=== PATIENT | male | born 1985 | race Caucasian/White ===

== ENCOUNTER 2016-11-11 19:13 | Inpatient (IN) | payer OTHER ==
[~2016-11-11] VITALS: Ht 203.2 cm; Wt 83.9 kg
--- NOTE | ~2016-11-11 | D ---
[facility] [place] [address] DISCHARGE SUMMARY Name: VERONICA MARCOS Room #: 454-P [facility] IN M.R.#: [id number] Admission: 11/12/16 Attend Phys: Adrianna Bee MD Discharge: 11/13/16 Date of : 85 Report #: [id number] THIS REPORT FOR: //name// CC: DEA physician/PCP Adrianna Garcia DATE OF SERVICE: 11/13/2016 HISTORY OF PRESENT ILLNESS: The patient is a 31-year-old man with history of seizure disorder since the age of 16, who came to the hospital with seizure episode. Please refer to the admission H and P for details. HOSPITALIZATION COURSE: The patient was hospitalized at [facility]. The patient was seen by neurologist. MRI of the brain was unremarkable. The patient had EEG, that showed no seizure activity. His seizure medications were continued, except the doses were increased. The patient's hospital stay was uneventful. He was found to have dehydration, and mild acute kidney injury, that has resolved on IV fluids. Currently, the patient's condition is acceptable, as documented in the patient's chart. DISCHARGE DIAGNOSES: 1. Episode of seizure, history of longstanding seizure disorder. Details as above. 2. History of panhypopituitarism, details are not specified. Possible idiopathic etiology. 3. 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 4. Bipolar disease. 5. Borderline personality disorder. 6. Gastroesophageal reflux disease. 7. Chronic pain syndrome. 8. History of pulmonary embolism in 2015, currently off anticoagulation. 9. Gait abnormality, not otherwise specified. DISCHARGE MEDICATIONS: Please refer to the medication reconciliation list. FOLLOWUP PLAN: 1. Follow up with the neurologist as advised. 2. Follow up with the primary care physician in 1-2 weeks. [facility] [address] [place] [address] DISCHARGE SUMMARY Name: VERONICA MARCOS Room #: 454-P [facility] IN .R.#: [id number] Admission: 11/12/16 Attend Phys: Adrianna Bee MD Discharge: 11/13/16 Date of : 85 Report #: [id number] I spent more than 30 minutes to coordinate the patient's discharge from the hospital. <ELECTRONICALLY SIGNED> By: Adrianna Bee MD 11/18/16 1247 1439 1920 Adrianna Bee MD /nt
--- NOTE | ~2016-11-11 | EEG ---
[facility] [place] [address] ELECTROENCEPHALOGRAM Name: VERONICA MARCOS Room #: 454-P [facility] IN M.R.#: [id number] Admission: 11/12/16 Attend Phys: Dorcas Saucedo Discharge: 11/13/16 Date of : 85 Report #: [id number] THIS REPORT FOR: //name// CC: DEA physician/PCP Juan Alberto Garcia DATE OF SERVICE: 11/12/2016 This patient is being evaluated for the possibility of seizure. The EEG was done by placing the electrodes by standard 10-20 system of electrode placement. Both referential and sequential montages were used for recording. Background activity in this patient's EEG is about 10 Hz and 30 microvolt. This is a symmetrical activity. The patient became drowsy and that is associated with some slowing, but most of the EEG was obtained when the patient was awake. Photic stimulation was unremarkable. Throughout the record, no active epileptiform activity was noticed. IMPRESSION: This patient's EEG is within normal limits. Thank you very much for this referral. <ELECTRONICALLY SIGNED> By: Edward Garcia MD 11/17/162002 1734 183 Edward Garcia MD /nt
[~2016-11-11 19:13] MED LIST: ACETAMINOPHEN-1 EAC1 PO; ADVAIR 250-501 EACH; ANDRODERM1 EAC2 TD; ANDRODERM1 EAC2 TRANSDERM; BENZTROPINE MES1 MG PO; BENZTROPINE MESY2 MG PO; CARDIZEM CD120 MG PO; CLONAZEPAM; CLONAZEPAM 0.50.5 M1 PO; CORTEF 20 MG TA20 MG PO; CORTEF10 MG PO; COUMADIN 2 MG TA2 M1 PO; COUMADIN 4 MG TA4 M1 PO; DOXYCYCLINE 10100 MG PO; DURAGESIC1 EAC2; ENOXAPARIN80 MG/0.1 SUBQ; FENTANYL PA50 MCG/HR; FENTANYL PA50 MCG/HR TOP; FENTANYL PA50 MCG/HR TRANSDERM; FLAGYL500 M1 PO; FLONASE 0.05%50 MCG NASAL; FLUVOXAMINE MA100 M1 PO; FOLIC ACID 1 MG1 MG PO; GRALISE600 MG PO; HYDROXYZINE HCL25 M1 PO; HYDROXYZINE PAM50 MG PO; KETOCONAZOLE60 GM TP; LAMICTAL; LAMOTRIGINE200 M1 PO; LAMOTRIGINE200 MG PO; LEVOTHYROXIN0.075 MG PO; LEVOTHYROXIN0.088 MG PO; LEVOTHYROXIN0.112 M1 PO; LEVOTHYROXINE 0.1 MG PO; LIDODERM 5%1 PATCH TOP; LORATIDINE 10 M10 M1 PO; LUVOX 50MG TABL50 M1 PO; LUVOX CR100 MG PO; MILK OF MA2400 MG/10 PO; MIRALAX255 GM PO; MOM PO; NEURONTIN600 MG PO; NIZORAL120 ML TOP; NYSTATIN 100,0015 G1 TOP; NYSTATIN 1100000 U/M; OMEPRAZOLE 20 M20 MG PO; OMEPRAZOLE20 MG PO; ONDANSETRON HCL4 M2 PO; OXYCODONE HCL 55 MG PO; PHENERGAN 25 MG25 M1 PO; POTASSIUM20 PO; PRENATAL PO; PROAIR HFA8.5 GM INH; QUETIAPINE FUM400 MG PO; SENNA-LAX8.6 MG PO; SINGULAIR 10 MG10 MG PO; TEARS NATURALE1 EACH OPHTHALMIC; TRAZODONE 150150 M1 PO; TRINATE TABLET1 TAB PO; TYLENOL325 MG PO; Trazodone HCL PO; VANCOMYCIN100 MG/ML PO; VENTOLIN HFA 1818 GM INH; VIMPAT100 MG; VIMPAT100 MG PO; VIMPAT150 MG PO; VISTARIL 25 MG25 M1 PO; VITAMIN D-32000 UNI1 PO; VITAMIN D-32000 UNIT PO; VITAMIN D1000 UNI1 PO
[2016-11-11 19:14] VITALS: BP 109/44
[2016-11-11 19:42] LABS: ABSOLUTE NEUTROPHILS 6.1 thou/uL (1.4-8.2); BASOPHILS 0.1 % (0.0-2.0); EOSINOPHILS 0.4 % (0.0-3.0); HEMATOCRIT 38.8 % (42.0-52.0); HEMOGLOBIN 13.4 gm/dL (14.0-18.0); LYMPHOCYTES 17.9 % (24.0-44.0); MCH 29.7 pg (26.0-34.0); MCHC 34.6 g/dL (28.0-37.0); MONOCYTES 6.6 % (1.0-8.0); PLATELET COUNT 272 thou/uL (150-400); RBC 4.52 mil/uL (4.50-6.00); WBC 8.1 thou/uL (4.0-11.0)
[2016-11-11 19:43] LABS: MANUAL DIFF NO
[2016-11-11 19:58] LABS: ANION GAP 10 mmol/L (7-16); BUN 17 mg/dL (7-18); CALCIUM 9.5 mg/dL (8.5-10.1); CHLORIDE 108 mmol/L (98-107); CO2 25 mmol/L (21-32); CREATININE 1.6 mg/dL (0.7-1.3); GLUCOSE 94 mg/dL (74-106); POTASSIUM 3.8 mmol/L (3.5-5.1); SODIUM 143 mmol/L (136-145)
[2016-11-11 20:02] LABS: ALBUMIN 4.2 g/dL (3.4-5.0); ALKALINE PHOSPHATASE 94 U/L (46-116); SALICYLATE 2.9 mg/dL (2.8-20.0); SGOT 11 U/L (15-37); SGPT 13 U/L (30-65); TOTAL BILIRUBIN 0.3 mg/dL (<0.1-1.0); TOTAL PROTEIN 7.2 g/dL (6.4-8.2)
[2016-11-11 20:03] LABS: ACETAMINOPHEN < 2 ug/mL (10-30)
[2016-11-11 22:43] VITALS: BP 117/75
[2016-11-11 23:05] VITALS: BP 118/70
[2016-11-11 23:28] LABS: URINE BILIRUBIN NEGATIVE (Negative); URINE BLOOD TRACE (Negative); URINE COLOR YELLOW; URINE GLUCOSE-RANDOM* NEGATIVE (Negative); URINE KETONES NEGATIVE (Negative); URINE LEUKOCYTES-REFLEX NEGATIVE (Negative); URINE PROTEIN (DIPSTICK) NEGATIVE (Negative); URINE UROBILINOGEN 0.2 E.U./dl (0.2-1.0)
[2016-11-11 23:44] LABS: AMP/METHAMP Negative (Negative); BARBITURATES Negative (Negative); BENZODIAZEPINES POSITIVE (Negative); COCAINE Negative (Negative); METHADONE Negative (Negative); OPIATES Negative (Negative); PCP Negative (Negative); THC Negative (Negative)
[2016-11-12 04:00] VITALS: BP 125/77
[2016-11-12 07:15] VITALS: BP 114/73
[2016-11-12 13:53] LABS: CALCIUM 8.7 mg/dL (8.5-10.1); CREATININE 1.2 mg/dL (0.7-1.3); POTASSIUM 4.1 mmol/L (3.5-5.1)
[2016-11-12 15:54] VITALS: BP 108/68
[2016-11-12 19:49] VITALS: BP 112/57
[2016-11-13 03:08] LABS: ABSOLUTE NEUTROPHILS 9.1 thou/uL (1.4-8.2); BASOPHILS 0.1 % (0.0-2.0); EOSINOPHILS 0.1 % (0.0-3.0); HEMATOCRIT 38.2 % (42.0-52.0); LYMPHOCYTES 10.3 % (24.0-44.0); MCH 29.7 pg (26.0-34.0); MCV 87.4 fL (80.0-100.0); PLATELET COUNT 263 thou/uL (150-400); POLYS 85.5 % (36.0-66.0); RBC 4.37 mil/uL (4.50-6.00); RDW 14.9 % (10.5-14.5); WBC 10.6 thou/uL (4.0-11.0)
[2016-11-13 03:38] VITALS: BP 106/65
[2016-11-13 03:46] LABS: MANUAL DIFF NO
[2016-11-13 03:54] LABS: CALCIUM 9.5 mg/dL (8.5-10.1); CREATININE 1.1 mg/dL (0.7-1.3); POTASSIUM 4.2 mmol/L (3.5-5.1)
[2016-11-13 07:17] VITALS: BP 128/79
[2016-11-13 12:22] VITALS: BP 125/73
[2016-11-13] MEDS ORDERED: VIMPAT50 MG PO (14:44)
[2016-11-13] MEDS ORDERED: LAMICTAL100 MG PO (14:44)
== END 2016-11-13 16:33 | disposition home or self-care (01) | DRG 100 ==
LOC: ER 19:13 → EROBS 21:47 → 4W 22:53
PROVIDERS: Emergency Medicine; Internal Medicine Endocrinology, Diabetes & Metabolism
DX: G40.909 Epilepsy, unspecified, not intractable, without status epilepticus (principal); N17.0 Acute kidney failure with tubular necrosis; E23.0 Hypopituitarism; I95.1 Orthostatic hypotension; F31.9 Bipolar disorder, unspecified; I12.9 Hypertensive chronic kidney disease with stage 1 through stage 4 chronic kidney disease, or unspecified chronic kidney disease; K21.9 Gastro-esophageal reflux disease without esophagitis; M19.90 Unspecified osteoarthritis, unspecified site; N18.3 Chronic kidney disease, stage 3 (moderate); M54.9 Dorsalgia, unspecified; J45.909 Unspecified asthma, uncomplicated; F41.9 Anxiety disorder, unspecified; M54.2 Cervicalgia; E03.9 Hypothyroidism, unspecified; F12.90 Cannabis use, unspecified, uncomplicated; F17.210 Nicotine dependence, cigarettes, uncomplicated; F10.10 Alcohol abuse, uncomplicated; G89.4 Chronic pain syndrome; Z86.711 Personal history of pulmonary embolism; Z88.1 Allergy status to other antibiotic agents; Z88.6 Allergy status to analgesic agent; Z79.899 Other long term (current) drug therapy; Z88.8 Allergy status to other drugs, medicaments and biological substances
CPT/HCPCS: 10045

== ENCOUNTER 2016-12-19 19:36 | Emergency (ER) | payer OTHER ==
[~2016-12-19] VITALS: Ht 203.2 cm; Wt 82.1 kg
[~2016-12-19 19:36] MED LIST changes: +LAMICTAL100 MG PO; +VIMPAT50 MG PO
[2016-12-19 20:22] LABS: URINE BILIRUBIN NEGATIVE (Negative); URINE BLOOD TRACE (Negative); URINE COLOR YELLOW; URINE GLUCOSE-RANDOM* NEGATIVE (Negative); URINE KETONES NEGATIVE (Negative); URINE NITRITE NEGATIVE (Negative); URINE PROTEIN (DIPSTICK) NEGATIVE (Negative); URINE SPECIFIC GRAVITY <= 1.005 (1.003-1.035); URINE UROBILINOGEN 0.2 E.U./dl (0.2-1.0)
[2016-12-19 20:37] LABS: ABSOLUTE NEUTROPHILS 4.3 thou/uL (1.4-8.2); BASOPHILS 0.5 % (0.0-2.0); EOSINOPHILS 1.4 % (0.0-3.0); HEMATOCRIT 38.2 % (42.0-52.0); HEMOGLOBIN 12.9 gm/dL (14.0-18.0); LYMPHOCYTES 25.3 % (24.0-44.0); MANUAL DIFF NO; MCH 30.6 pg (26.0-34.0); MCHC 33.8 g/dL (28.0-37.0); MCV 90.6 fL (80.0-100.0); PLATELET COUNT 248 thou/uL (150-400); POLYS 65.8 % (36.0-66.0); RBC 4.22 mil/uL (4.50-6.00); WBC 6.6 thou/uL (4.0-11.0)
[2016-12-19 20:45] LABS: ANION GAP 11 mmol/L (7-16); BUN 13 mg/dL (7-18); CALCIUM 9.3 mg/dL (8.5-10.1); CHLORIDE 106 mmol/L (98-107); CO2 26 mmol/L (21-32); CREATININE 1.3 mg/dL (0.7-1.3); GLUCOSE 99 mg/dL (74-106); POTASSIUM 3.7 mmol/L (3.5-5.1); SODIUM 143 mmol/L (136-145)
[2016-12-19 20:50] LABS: ALBUMIN 4.2 g/dL (3.4-5.0); ALKALINE PHOSPHATASE 91 U/L (46-116); DIRECT BILIRUBIN < 0.1 mg/dL (<0.1-0.3); SGOT 13 U/L (15-37); SGPT 16 U/L (30-65); TOTAL BILIRUBIN 0.3 mg/dL (<0.1-1.0); TOTAL PROTEIN 6.6 g/dL (6.4-8.2)
== END 2016-12-19 22:29 | disposition home or self-care (01) ==
LOC: ER 19:36
PROVIDERS: Nurse Practitioner
DX: R56.9 Unspecified convulsions (principal); F31.9 Bipolar disorder, unspecified; K21.9 Gastro-esophageal reflux disease without esophagitis; M19.90 Unspecified osteoarthritis, unspecified site; G89.29 Other chronic pain; M54.9 Dorsalgia, unspecified; J45.909 Unspecified asthma, uncomplicated; F41.9 Anxiety disorder, unspecified; F84.0 Autistic disorder; I12.9 Hypertensive chronic kidney disease with stage 1 through stage 4 chronic kidney disease, or unspecified chronic kidney disease; N18.9 Chronic kidney disease, unspecified; E29.1 Testicular hypofunction; F17.210 Nicotine dependence, cigarettes, uncomplicated; Z86.711 Personal history of pulmonary embolism; Z86.14 Personal history of Methicillin resistant Staphylococcus aureus infection; Z88.1 Allergy status to other antibiotic agents; Z88.6 Allergy status to analgesic agent; Z88.8 Allergy status to other drugs, medicaments and biological substances; W07.XXXA Fall from chair, initial encounter; Y93.89 Activity, other specified; Y92.89 Other specified places as the place of occurrence of the external cause; Y99.8 Other external cause status

== ENCOUNTER 2017-01-23 18:46 | Emergency (ER) | payer OTHER ==
[~2017-01-23] VITALS: Ht 203.2 cm; Wt 83.9 kg
[2017-01-23 19:09] LABS: ABSOLUTE NEUTROPHILS 7.6 thou/uL (1.4-8.2); BASOPHILS 0.4 % (0.0-2.0); EOSINOPHILS 0.3 % (0.0-3.0); HEMATOCRIT 35.5 % (42.0-52.0); HEMOGLOBIN 12.5 gm/dL (14.0-18.0); LYMPHOCYTES 18.5 % (24.0-44.0); MCH 31.3 pg (26.0-34.0); MCHC 35.1 g/dL (28.0-37.0); MCV 89.1 fL (80.0-100.0); PLATELET COUNT 248 thou/uL (150-400); POLYS 74.8 % (36.0-66.0); RBC 3.98 mil/uL (4.50-6.00); RDW 13.9 % (10.5-14.5); WBC 10.2 thou/uL (4.0-11.0)
[2017-01-23 19:12] LABS: MANUAL DIFF NO
[2017-01-23 19:17] LABS: CREATININE 1.3 mg/dL (0.7-1.3); POTASSIUM 3.2 mmol/L (3.5-5.1)
[2017-01-23] MEDS ORDERED: KEFLEX500 MG PO (22:26)
== END 2017-01-23 22:45 ==
LOC: ER 18:46
PROVIDERS: Emergency Medicine
DX: G40.901 Epilepsy, unspecified, not intractable, with status epilepticus (principal); J18.9 Pneumonia, unspecified organism; I12.9 Hypertensive chronic kidney disease with stage 1 through stage 4 chronic kidney disease, or unspecified chronic kidney disease; N18.9 Chronic kidney disease, unspecified; F31.9 Bipolar disorder, unspecified; K21.9 Gastro-esophageal reflux disease without esophagitis; M19.90 Unspecified osteoarthritis, unspecified site; I47.1 Supraventricular tachycardia; F41.9 Anxiety disorder, unspecified; J45.909 Unspecified asthma, uncomplicated; F17.210 Nicotine dependence, cigarettes, uncomplicated; F10.99 Alcohol use, unspecified with unspecified alcohol-induced disorder; Z88.1 Allergy status to other antibiotic agents; Z91.048 Other nonmedicinal substance allergy status; Z88.6 Allergy status to analgesic agent; Z88.8 Allergy status to other drugs, medicaments and biological substances

== ENCOUNTER 2017-02-11 15:44 | Observation (INO) | payer OTHER ==
[~2017-02-11] VITALS: Ht 203.2 cm; Wt 83.9 kg
[~2017-02-11 15:44] MED LIST changes: +KEFLEX500 MG PO
[2017-02-11 15:50] VITALS: BP 113/63
[2017-02-11 16:05] LABS: ABSOLUTE NEUTROPHILS 6.6 thou/uL (1.4-8.2); BASOPHILS 0.3 % (0.0-2.0); EOSINOPHILS 0.4 % (0.0-3.0); HEMATOCRIT 44.2 % (42.0-52.0); HEMOGLOBIN 15.2 gm/dL (14.0-18.0); LYMPHOCYTES 16.4 % (24.0-44.0); MCH 31.1 pg (26.0-34.0); MCHC 34.3 g/dL (28.0-37.0); MCV 90.7 fL (80.0-100.0); PLATELET COUNT 263 thou/uL (150-400); POLYS 76.9 % (36.0-66.0); RBC 4.88 mil/uL (4.50-6.00); RDW 13.9 % (10.5-14.5); WBC 8.6 thou/uL (4.0-11.0)
[2017-02-11 16:06] LABS: MANUAL DIFF NO
[2017-02-11 16:09] LABS: CALCIUM 10.3 mg/dL (8.5-10.1); CREATININE 1.6 mg/dL (0.7-1.3); POTASSIUM 4.7 mmol/L (3.5-5.1)
[2017-02-11 16:15] LABS: ALBUMIN 4.7 g/dL (3.4-5.0); TOTAL BILIRUBIN 0.3 mg/dL (<0.1-1.0); TOTAL PROTEIN 8.1 g/dL (6.4-8.2)
[2017-02-11] MEDS ORDERED: LEVOTHYROXIN0.075 MG PO (17:50)
[2017-02-11 17:52] VITALS: BP 94/71
[2017-02-11] MEDS ORDERED: DEPO-TESTO200 MG/1 M IM (17:54)
[2017-02-11] MEDS ORDERED: AMBIEN 5 MG TABL5 M1 PO (17:55)
[2017-02-11 18:16] VITALS: BP 105/69
[2017-02-11 19:16] VITALS: BP 122/72
[2017-02-11 23:35] VITALS: BP 112/70
[2017-02-12 04:14] VITALS: BP 99/69
[2017-02-12 09:30] VITALS: BP 169/53
[2017-02-12 16:00] VITALS: BP 90/56
== END 2017-02-12 18:47 ==
LOC: ER 15:44 → 5S 17:50 → EROBS 17:50 → 5S 18:18
PROVIDERS: Emergency Medicine
DX: R56.9 Unspecified convulsions (principal); F31.9 Bipolar disorder, unspecified; F60.3 Borderline personality disorder; E23.0 Hypopituitarism; M19.90 Unspecified osteoarthritis, unspecified site; M54.9 Dorsalgia, unspecified; G89.29 Other chronic pain; F17.210 Nicotine dependence, cigarettes, uncomplicated; I26.99 Other pulmonary embolism without acute cor pulmonale; I12.9 Hypertensive chronic kidney disease with stage 1 through stage 4 chronic kidney disease, or unspecified chronic kidney disease; N18.9 Chronic kidney disease, unspecified; F41.9 Anxiety disorder, unspecified; F32.9 Major depressive disorder, single episode, unspecified; J45.909 Unspecified asthma, uncomplicated; Z72.89 Other problems related to lifestyle

== ENCOUNTER 2017-02-25 17:54 | Inpatient (IN) | payer OTHER ==
[~2017-02-25] VITALS: Ht 182.9 cm; Wt 82.6 kg
[~2017-02-25 17:54] MED LIST changes: +AMBIEN 5 MG TABL5 M1 PO; +DEPO-TESTO200 MG/1 M IM
[2017-02-25 18:15] VITALS: BP 128/74
[2017-02-25 19:12] LABS: BASOPHILS 0.3 % (0.0-2.0); EOSINOPHILS 1.5 % (0.0-3.0); HEMATOCRIT 43.6 % (42.0-52.0); LYMPHOCYTES 31.2 % (24.0-44.0); MCH 31.1 pg (26.0-34.0); MCHC 34.4 g/dL (28.0-37.0); MCV 90.6 fL (80.0-100.0); MONOCYTES 5.1 % (1.0-8.0); PLATELET COUNT 221 thou/uL (150-400); POLYS 61.9 % (36.0-66.0); RBC 4.81 mil/uL (4.50-6.00); RDW 13.5 % (10.5-14.5); WBC 8.1 thou/uL (4.0-11.0)
[2017-02-25 19:16] LABS: MANUAL DIFF NO
[2017-02-25 19:39] LABS: CALCIUM 9.8 mg/dL (8.5-10.1); CREATININE 1.2 mg/dL (0.7-1.3); POTASSIUM 4.1 mmol/L (3.5-5.1)
[2017-02-25] MEDS ORDERED: LUVOX 50MG TABL50 M1 PO (19:51)
[2017-02-25] MEDS ORDERED: NIZORAL A-D200 ML TP (19:52)
[2017-02-25 20:00] LABS: APTT 24.3 Seconds (24.5-32.8); PROTIME 10.2 Seconds (9.3-11.4)
[2017-02-25 20:20] VITALS: BP 128/72
[2017-02-26] VITALS: BP 104/62
[2017-02-26 04:00] VITALS: BP 103/58
[2017-02-26 06:25] LABS: HEMATOCRIT 40.7 % (42.0-52.0); HEMOGLOBIN 13.8 gm/dL (14.0-18.0); MCH 30.8 pg (26.0-34.0); MCHC 33.9 g/dL (28.0-37.0); MCV 90.7 fL (80.0-100.0); RBC 4.48 mil/uL (4.50-6.00); RDW 13.2 % (10.5-14.5); WBC 8.4 thou/uL (4.0-11.0)
[2017-02-26 06:37] LABS: APTT 28.3 Seconds (24.5-32.8); INR 1.1; PROTIME 10.8 Seconds (9.3-11.4)
[2017-02-26 06:38] LABS: CALCIUM 9.5 mg/dL (8.5-10.1); CREATININE 1.3 mg/dL (0.7-1.3)
[2017-02-26 08:52] VITALS: BP 102/60
[2017-02-26] MEDS ORDERED: ELIQUIS5 MG PO (14:04)
[2017-02-26 15:17] VITALS: BP 102/60
== END 2017-02-26 20:00 | DRG 300 ==
LOC: ER 17:54 → 4N 19:54 → EROBS 19:54 → 4N 21:35
PROVIDERS: Emergency Medicine; Nurse Practitioner Family
DX: I82.403 Acute embolism and thrombosis of unspecified deep veins of lower extremity, bilateral (principal); E27.40 Unspecified adrenocortical insufficiency; F31.9 Bipolar disorder, unspecified; E03.9 Hypothyroidism, unspecified; G89.29 Other chronic pain; M54.9 Dorsalgia, unspecified; M19.90 Unspecified osteoarthritis, unspecified site; F17.210 Nicotine dependence, cigarettes, uncomplicated; Z79.899 Other long term (current) drug therapy; Z86.711 Personal history of pulmonary embolism; Z88.6 Allergy status to analgesic agent; Z88.1 Allergy status to other antibiotic agents; Z88.8 Allergy status to other drugs, medicaments and biological substances; Z86.14 Personal history of Methicillin resistant Staphylococcus aureus infection
CPT/HCPCS: 10091

== ENCOUNTER 2017-05-07 19:07 | Emergency (ER) | payer OTHER ==
[~2017-05-07] VITALS: Ht 203.2 cm; Wt 81.7 kg
--- NOTE | ~2017-05-07 | EKG ---
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 : 1985 Requested By: Alysha Alonso Order Number: [id number] MD: Randy Huggins Measurements Intervals [place] Rate: 107 P: 35 NC: 200 QRS: 93 QRSD: 110 T: 28 QT: 344 QTc: 459 Interpretive Statements Sinus tachycardia Borderline prolonged NC interval Probable left atrial enlargement Consider RVH w/ secondary repol abnormality ST elev, probable normal early repol pattern Compared to ECG 03/17/2015 16:05:18 ST (T wave) deviation now present Right-axis deviation no longer present Electronically Signed On 05-09-2017 6:41:47 CDT by Randy Huggins [email or web address] <ELECTRONICALLY SIGNED> By: Randy Huggins MD 05/09/17 0641 11 11 Randy Huggins MD /EPI
[~2017-05-07 19:07] MED LIST changes: +ELIQUIS5 MG PO; +NIZORAL A-D200 ML TP
[2017-05-07 19:52] LABS: HEMOGLOBIN 12.5 gm/dL (14.0-18.0); MCH 30.7 pg (26.0-34.0); MCHC 33.8 g/dL (28.0-37.0); MCV 90.9 fL (80.0-100.0); RBC 4.07 mil/uL (4.50-6.00); RDW 13.7 % (10.5-14.5); WBC 10.2 thou/uL (4.0-11.0)
[2017-05-07 19:56] LABS: CALCIUM 9.6 mg/dL (8.5-10.1); CREATININE 1.6 mg/dL (0.7-1.3); POTASSIUM 3.8 mmol/L (3.5-5.1)
[2017-05-07 20:01] LABS: INR 1.3; PROTIME 13.2 Seconds (9.3-11.4)
== END 2017-05-07 21:55 | disposition home or self-care (01) ==
LOC: ER 19:07
PROVIDERS: Emergency Medicine
DX: S93.401A Sprain of unspecified ligament of right ankle, initial encounter (principal); G40.89 Other seizures; E86.0 Dehydration; R79.1 Abnormal coagulation profile; F31.9 Bipolar disorder, unspecified; J45.909 Unspecified asthma, uncomplicated; E03.9 Hypothyroidism, unspecified; G89.29 Other chronic pain; M19.90 Unspecified osteoarthritis, unspecified site; F17.210 Nicotine dependence, cigarettes, uncomplicated; F10.99 Alcohol use, unspecified with unspecified alcohol-induced disorder; Z88.6 Allergy status to analgesic agent; Z88.1 Allergy status to other antibiotic agents; Z88.8 Allergy status to other drugs, medicaments and biological substances; Z91.048 Other nonmedicinal substance allergy status; W18.39XA Other fall on same level, initial encounter; Y93.89 Activity, other specified; Y92.89 Other specified places as the place of occurrence of the external cause; Y99.8 Other external cause status

== ENCOUNTER 2017-08-13 21:49 | Emergency (ER) | payer OTHER ==
[~2017-08-13] VITALS: Ht 203.2 cm; Wt 81.7 kg
[2017-08-13 22:44] LABS: HEMATOCRIT 43.6 % (42.0-52.0); HEMOGLOBIN 15.1 gm/dL (14.0-18.0); MCH 31.2 pg (26.0-34.0); MCHC 34.8 g/dL (28.0-37.0); MCV 89.8 fL (80.0-100.0); RBC 4.85 mil/uL (4.50-6.00); RDW 13.9 % (10.5-14.5); WBC 9.4 thou/uL (4.0-11.0)
[2017-08-13 22:59] LABS: INR 1.7; PROTIME 17.5 Seconds (9.3-11.4)
[2017-08-13 23:13] LABS: CALCIUM 9.8 mg/dL (8.5-10.1); CREATININE 1.3 mg/dL (0.7-1.3); POTASSIUM 3.7 mmol/L (3.5-5.1)
[2017-08-13 23:20] LABS: ALBUMIN 4.5 g/dL (3.4-5.0); TOTAL BILIRUBIN 0.4 mg/dL (<0.1-1.0)
[2017-08-14 00:27] VITALS: BP 120/65
== END 2017-08-14 00:28 | disposition home or self-care (01) ==
LOC: ER 21:49
PROVIDERS: Emergency Medicine
DX: G40.909 Epilepsy, unspecified, not intractable, without status epilepticus (principal); J45.909 Unspecified asthma, uncomplicated; E03.9 Hypothyroidism, unspecified; M19.90 Unspecified osteoarthritis, unspecified site; G89.29 Other chronic pain; M54.5 Low back pain; F17.210 Nicotine dependence, cigarettes, uncomplicated; Z88.1 Allergy status to other antibiotic agents; Z88.6 Allergy status to analgesic agent; Z88.8 Allergy status to other drugs, medicaments and biological substances

== ENCOUNTER 2018-01-01 16:39 | Emergency (ER) | payer OTHER ==
[~2018-01-01] VITALS: Ht 203.2 cm; Wt 85.3 kg
--- NOTE | ~2018-01-01 | EKG ---
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 01/02/18 1254 47 47 Godfrey David MD, [facility] /EPI
[2018-01-01 17:02] LABS: ABSOLUTE NEUTROPHILS 6.6 thou/uL (1.4-8.2); BASOPHILS 0.2 % (0.0-2.0); EOSINOPHILS 0.6 % (0.0-3.0); HEMATOCRIT 49.4 % (42.0-52.0); LYMPHOCYTES 16.1 % (24.0-44.0); MCH 31.8 pg (26.0-34.0); MCHC 34.5 g/dL (28.0-37.0); MCV 92.2 fL (80.0-100.0); MONOCYTES 4.8 % (1.0-8.0); PLATELET COUNT 234 thou/uL (150-400); POLYS 78.3 % (36.0-66.0); RBC 5.36 mil/uL (4.50-6.00); RDW 13.9 % (10.5-14.5); WBC 8.4 thou/uL (4.0-11.0)
[2018-01-01 17:06] LABS: CALCIUM 9.8 mg/dL (8.5-10.1); CREATININE 1.5 mg/dL (0.7-1.3); POTASSIUM 4.3 mmol/L (3.5-5.1)
[2018-01-01 17:12] LABS: ALBUMIN 4.8 g/dL (3.4-5.0); TOTAL BILIRUBIN 0.3 mg/dL (<0.1-1.0); TOTAL PROTEIN 7.9 g/dL (6.4-8.2)
[2018-01-01] MEDS ORDERED: CYCLOBENZAPRINE5 MG PO (19:12)
== END 2018-01-01 19:50 ==
LOC: ER 16:39
PROVIDERS: Physician Assistant
DX: G40.909 Epilepsy, unspecified, not intractable, without status epilepticus (principal); S09.90XA Unspecified injury of head, initial encounter; M54.2 Cervicalgia; M25.559 Pain in unspecified hip; F31.9 Bipolar disorder, unspecified; E03.9 Hypothyroidism, unspecified; J45.909 Unspecified asthma, uncomplicated; N18.9 Chronic kidney disease, unspecified; M19.90 Unspecified osteoarthritis, unspecified site; M54.9 Dorsalgia, unspecified; G89.29 Other chronic pain; F17.210 Nicotine dependence, cigarettes, uncomplicated; Z88.1 Allergy status to other antibiotic agents; Z88.8 Allergy status to other drugs, medicaments and biological substances

== ENCOUNTER 2018-02-08 20:18 | Emergency (ER) | payer OTHER ==
[~2018-02-08] VITALS: Ht 177.8 cm; Wt 85.3 kg
--- NOTE | ~2018-02-08 | EKG ---
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: TREVON : 1985 Requested By: Allan Coats Order Number: [id number] MD: Godfrey David Measurements Intervals [place] Rate: 107 P: 30 [place]: 186 QRS: 87 QRSD: 98 T: 18 QT: 324 QTc: 433 Interpretive Statements Sinus tachycardia RSR' in V1 or V2, right VCD or RVH Compared to ECG 01/01/2018 16:48:04 No significant change was found Electronically Signed On 02-09-2018 8:27:10 CDT by Godfrey David [email or web address] <ELECTRONICALLY SIGNED> By: Godfrey David MD, [facility] [id number] 36 36 Godfrey David MD, [facility] /EPI
[~2018-02-08 20:18] MED LIST changes: +CYCLOBENZAPRINE5 MG PO
[2018-02-08] MEDS ORDERED: SENNA8.6 MG PO (20:37)
[2018-02-08 20:39] LABS: ABSOLUTE NEUTROPHILS 4.8 thou/uL (1.4-8.2); BASOPHILS 0.4 % (0.0-2.0); EOSINOPHILS 1.6 % (0.0-3.0); HEMATOCRIT 46.7 % (42.0-52.0); HEMOGLOBIN 16.3 gm/dL (14.0-18.0); LYMPHOCYTES 34.4 % (24.0-44.0); MCH 31.4 pg (26.0-34.0); MCHC 34.9 g/dL (28.0-37.0); MCV 89.7 fL (80.0-100.0); PLATELET COUNT 239 thou/uL (150-400); POLYS 56.6 % (36.0-66.0); RDW 13.7 % (10.5-14.5); WBC 8.5 thou/uL (4.0-11.0)
[2018-02-08] MEDS ORDERED: BUSPIRONE HCL10 MG PO (20:39)
[2018-02-08 20:47] LABS: ANION GAP 16 mmol/L (7-16); BUN 15 mg/dL (7-18); CALCIUM 10.1 mg/dL (8.5-10.1); CHLORIDE 103 mmol/L (98-107); CO2 21 mmol/L (21-32); CREATININE 1.8 mg/dL (0.7-1.3); GLUCOSE 86 mg/dL (74-106); POTASSIUM 3.7 mmol/L (3.5-5.1); SODIUM 140 mmol/L (136-145)
[2018-02-08 20:56] LABS: ALBUMIN 4.7 g/dL (3.4-5.0); SGOT 13 U/L (15-37); SGPT 17 U/L (30-65); TOTAL BILIRUBIN 0.3 mg/dL (<0.1-1.0); TOTAL PROTEIN 7.6 g/dL (6.4-8.2); TROPONIN-I <0.06 ng/mL (<0.06)
== END 2018-02-08 22:09 | disposition home or self-care (01) ==
LOC: ER 20:18
PROVIDERS: Emergency Medicine
DX: G40.909 Epilepsy, unspecified, not intractable, without status epilepticus (principal); F31.9 Bipolar disorder, unspecified; J45.909 Unspecified asthma, uncomplicated; M54.9 Dorsalgia, unspecified; G89.29 Other chronic pain; Z86.14 Personal history of Methicillin resistant Staphylococcus aureus infection; E03.9 Hypothyroidism, unspecified; M19.90 Unspecified osteoarthritis, unspecified site; F17.210 Nicotine dependence, cigarettes, uncomplicated; Z88.1 Allergy status to other antibiotic agents; Z88.6 Allergy status to analgesic agent; Z88.8 Allergy status to other drugs, medicaments and biological substances

== ENCOUNTER 2018-04-26 16:09 | Emergency (ER) | payer OTHER ==
[~2018-04-26] VITALS: Ht 203.2 cm; Wt 85.3 kg
[~2018-04-26 16:09] MED LIST changes: +BUSPIRONE HCL10 MG PO; +SENNA8.6 MG PO
[2018-04-26] MEDS ORDERED: COUMADIN 3 MG TA3 M1 PO (16:16)
[2018-04-26] MEDS ORDERED: CORTEF5 MG PO (16:18)
[2018-04-26] MEDS ORDERED: ONDANSETRON HCL4 M2 PO (16:20)
[2018-04-26 16:32] LABS: ABSOLUTE NEUTROPHILS 3.7 thou/uL (1.4-8.2); BASOPHILS 0.3 % (0.0-2.0); EOSINOPHILS 1.2 % (0.0-3.0); HEMATOCRIT 46.9 % (42.0-52.0); LYMPHOCYTES 36.6 % (24.0-44.0); MCH 30.7 pg (26.0-34.0); MCHC 34.1 g/dL (28.0-37.0); MCV 90.1 fL (80.0-100.0); MONOCYTES 5.6 % (1.0-8.0); PLATELET COUNT 242 thou/uL (150-400); POLYS 56.3 % (36.0-66.0); RBC 5.21 mil/uL (4.50-6.00); RDW 14.1 % (10.5-14.5); WBC 6.6 thou/uL (4.0-11.0)
[2018-04-26 16:34] LABS: CALCIUM 9.9 mg/dL (8.5-10.1); CREATININE 1.4 mg/dL (0.7-1.3); POTASSIUM 3.2 mmol/L (3.5-5.1)
[2018-04-26 16:41] LABS: ALBUMIN 4.6 g/dL (3.4-5.0); MAGNESIUM 2.1 mg/dL (1.8-2.4); TOTAL BILIRUBIN 0.4 mg/dL (<0.1-1.0); TOTAL PROTEIN 7.6 g/dL (6.4-8.2)
[2018-04-26 16:42] LABS: INR 2.2
== END 2018-04-26 17:27 | disposition home or self-care (01) ==
LOC: ER 16:09
PROVIDERS: Emergency Medicine
DX: G40.909 Epilepsy, unspecified, not intractable, without status epilepticus (principal); S09.90XA Unspecified injury of head, initial encounter; G89.4 Chronic pain syndrome; E87.6 Hypokalemia; G89.29 Other chronic pain; J45.909 Unspecified asthma, uncomplicated; E03.9 Hypothyroidism, unspecified; M19.90 Unspecified osteoarthritis, unspecified site; F17.210 Nicotine dependence, cigarettes, uncomplicated; Z86.14 Personal history of Methicillin resistant Staphylococcus aureus infection; Z79.899 Other long term (current) drug therapy; Z88.1 Allergy status to other antibiotic agents; Z88.6 Allergy status to analgesic agent; Z88.8 Allergy status to other drugs, medicaments and biological substances; Z79.01 Long term (current) use of anticoagulants; X58.XXXA Exposure to other specified factors, initial encounter; Y93.89 Activity, other specified; Y92.89 Other specified places as the place of occurrence of the external cause; Y99.8 Other external cause status

== ENCOUNTER 2018-05-29 16:29 | Emergency (ER) | payer OTHER ==
[~2018-05-29] VITALS: Ht 203.2 cm; Wt 85.3 kg
--- NOTE | ~2018-05-29 | EEG ---
[facility] [place] [address] ELECTROENCEPHALOGRAM Name: VERONICA MARCOS Quan [facility] [id number] Admission: 05/29/18 Attend Phys: Discharge: 05/29/18 Date of : 85 Report #: [id number] THIS REPORT FOR: //name// CC: Cory Caicedo DATE OF SERVICE: 05/29/2018 This patient was admitted with repeated seizure by history. He usually goes to an epileptologist for his care at [facility]. Initial plan was to send this patient back to [facility] to his epileptologist for a video monitor EEG. Initially, the history was not there, but when the Emergency Room physician called the [facility] epileptologist, they pulled out the data and that indicated that the patient had a video monitored EEG recently and that showed finding consistent with pseudoseizure. In fact, he had another video monitored EEG several years ago and that also demonstrated findings consistent with pseudoseizure. They recommended followup with psychiatrist. This EEG was done to evaluate the possibility of seizure. EEG was done by placing the electrode by standard 10-20 system of electrode placement. Both referential and sequential montages were used for recording. Background activity in this patient's EEG is about 10-11 Hz and 50 microvolts. This is a very well formed background activity. There is no slowing noticed to indicate any postictal. In spite of the fact that the patient did get some sedation, photic stimulation is unremarkable. Absolutely no epileptiform activity was noticed during this record. IMPRESSION: This patient's EEG is within normal limits. No epileptiform activity was noticed. No postictal slowing was noticed and EEG was well formed in spite of the history that the patient just had seizures. Combined with other history that strongly point towards pseudoseizures as the etiology of the patient's symptom. Clinical correlation is recommended. Thank you very much for this referral. <ELECTRONICALLY SIGNED> By: Edward Garcia MD 06/06/18 1541 0841 0921 Edward Garcia MD /nt
--- NOTE | ~2018-05-29 | EKG ---
[address] [address] ELECTROCARDIOGRAM REPORT Name: VERONICA MARCOS [facility] [id number] Admission: 05/29/18 Attend Phys: Discharge: 05/29/18 Date of : 85 Report #: [id number] THIS REPORT FOR: //name// [facility] ED Test Date: 2018-05-29 Test Time: 18:49:35 Pat Name: VERONICA MARCOS Department: Room: 170 Gender: M Goal Umpire: : 1985 Requested By: Janet Bassett Order Number: [id number] MD: Randy Huggins Measurements Intervals [place] Rate: 89 P: 22 [place]: 193 QRS: 50 QRSD: 102 T: 28 QT: 353 QTc: 430 Interpretive Statements Sinus rhythm Probable left atrial enlargement RSR' in V1 or V2, probably normal variant Electronically Signed On 05-31-2018 20:21:35 MILITARY PAY TECHNICIAN by Randy Huggins [email or web address] <ELECTRONICALLY SIGNED> By: Randy Huggins MD 05/31/182020 48 1849 aRndy Huggins MD /SERGIO
[~2018-05-29 16:29] MED LIST changes: +CORTEF5 MG PO; +COUMADIN 3 MG TA3 M1 PO
[2018-05-29 16:30] VITALS: BP 112/60
[2018-05-29 18:26] LABS: ABSOLUTE NEUTROPHILS 5.6 thou/uL (1.4-8.2); BASOPHILS 0.3 % (0.0-2.0); HEMATOCRIT 44.1 % (42.0-52.0); HEMOGLOBIN 15.5 gm/dL (14.0-18.0); MCH 31.6 pg (26.0-34.0); MCHC 35.1 g/dL (28.0-37.0); MCV 89.9 fL (80.0-100.0); MONOCYTES 7.2 % (1.0-8.0); PLATELET COUNT 219 thou/uL (150-400); POLYS 62.5 % (36.0-66.0); RDW 14.2 % (10.5-14.5); WBC 8.9 thou/uL (4.0-11.0)
[2018-05-29 18:27] LABS: URINE BILIRUBIN NEGATIVE (Negative); URINE BLOOD NEGATIVE (Negative); URINE CLARITY CLEAR; URINE COLOR YELLOW; URINE GLUCOSE-RANDOM* NEGATIVE (Negative); URINE KETONES NEGATIVE (Negative); URINE LEUKOCYTES NEGATIVE (Negative); URINE NITRITE NEGATIVE (Negative); URINE PROTEIN (DIPSTICK) NEGATIVE (Negative); URINE SPECIFIC GRAVITY <= 1.005 (1.005-1.035); URINE UROBILINOGEN 0.2 E.U./dl (0.2-1.0)
[2018-05-29 18:38] LABS: CALCIUM 9.8 mg/dL (8.5-10.1); CREATININE 1.5 mg/dL (0.7-1.3); POTASSIUM 3.9 mmol/L (3.5-5.1)
[2018-05-29 18:39] LABS: AMP/METHAMP Negative (Negative); BARBITURATES Negative (Negative); BENZODIAZEPINES POSITIVE (Negative); COCAINE Negative (Negative); METHADONE Negative (Negative); OPIATES Negative (Negative); PCP Negative (Negative)
[2018-05-29 18:44] LABS: ALBUMIN 4.3 g/dL (3.4-5.0); TOTAL BILIRUBIN 0.5 mg/dL (<0.1-1.0); TOTAL PROTEIN 7.1 g/dL (6.4-8.2)
[2018-05-29 20:11] LABS: INR 2.4; PROTIME 24.5 Seconds (9.3-11.4)
[2018-05-29 22:05] VITALS: BP 113/77
== END 2018-05-29 22:47 | disposition home or self-care (01) ==
LOC: ER 16:29 → EROBS 18:43
PROVIDERS: Physician Assistant
DX: F44.5 Conversion disorder with seizures or convulsions (principal); F17.210 Nicotine dependence, cigarettes, uncomplicated; G89.29 Other chronic pain; F31.9 Bipolar disorder, unspecified; J45.909 Unspecified asthma, uncomplicated; E03.9 Hypothyroidism, unspecified; M47.896 Other spondylosis, lumbar region; Z88.6 Allergy status to analgesic agent; Z88.1 Allergy status to other antibiotic agents; Z88.8 Allergy status to other drugs, medicaments and biological substances; Z91.048 Other nonmedicinal substance allergy status

== ENCOUNTER 2018-10-21 21:05 | Emergency (ER) | payer OTHER ==
[~2018-10-21] VITALS: Ht 203.2 cm; Wt 93.0 kg
[2018-10-21 21:29] LABS: ABSOLUTE NEUTROPHILS 5.5 thou/uL (1.4-8.2); BASOPHILS 0.6 % (0.0-2.0); EOSINOPHILS 2.1 % (0.0-3.0); HEMATOCRIT 45.9 % (42.0-52.0); HEMOGLOBIN 15.9 gm/dL (14.0-18.0); LYMPHOCYTES 34.3 % (24.0-44.0); MCH 31.6 pg (26.0-34.0); MCHC 34.6 g/dL (28.0-37.0); MCV 91.3 fL (80.0-100.0); MONOCYTES 6.8 % (1.0-8.0); PLATELET COUNT 249 thou/uL (150-400); POLYS 56.2 % (36.0-66.0); RBC 5.03 mil/uL (4.50-6.00); RDW 13.8 % (10.5-14.5); WBC 9.8 thou/uL (4.0-11.0)
[2018-10-21 21:31] LABS: ANION GAP 10 mmol/L (7-16); BUN 19 mg/dL (7-18); CALCIUM 9.7 mg/dL (8.5-10.1); CHLORIDE 109 mmol/L (98-107); CO2 25 mmol/L (21-32); CREATININE 1.3 mg/dL (0.7-1.3); GLUCOSE 95 mg/dL (74-106); POTASSIUM 3.7 mmol/L (3.5-5.1); SODIUM 144 mmol/L (136-145)
[2018-10-21 21:40] LABS: TROPONIN-I <0.06 ng/mL (<0.06)
[2018-10-21 23:04] VITALS: BP 125/71
--- NOTE | 2018-10-22 09:27 | EKG ---
[place] [address] [address] [facility] [place] [address] ELECTROCARDIOGRAM REPORT Name: MARCOSVERONICA Room #: 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 : 1985 Requested By: Georges Dial Order Number: [id number] MD: Godfrey David Measurements Intervals [place] Rate: 88 P: 20 [place]: 169 QRS: 75 QRSD: 102 T: 20 QT: 363 QTc: 440 Interpretive Statements Sinus rhythm RSR' in V1 or V2, right VCD Compared to ECG 05/29/2018 18:49:35 No significant change was found Electronically Signed On 10-22-2018 9:27:35 CDT by Godfrey David [email or web address] ��������������������������������������������� <ELECTRONICALLY SIGNED> ���������������������������������������� By: Godfrey David MD, [facility] ��������������������������������������������� 10/22/18926 19 19 Godfrey David MD, [facility] /EPI
== END 2018-10-21 23:04 | disposition home or self-care (01) ==
LOC: ER 21:05
PROVIDERS: Emergency Medicine
DX: G40.909 Epilepsy, unspecified, not intractable, without status epilepticus (principal); M54.9 Dorsalgia, unspecified; G89.29 Other chronic pain; F31.9 Bipolar disorder, unspecified; J45.909 Unspecified asthma, uncomplicated; E03.9 Hypothyroidism, unspecified; F17.210 Nicotine dependence, cigarettes, uncomplicated; Z88.6 Allergy status to analgesic agent; Z88.8 Allergy status to other drugs, medicaments and biological substances

== ENCOUNTER 2018-10-30 16:48 | Emergency (ER) | payer OTHER ==
[~2018-10-30] VITALS: Ht 203.2 cm; Wt 90.7 kg
[2018-10-30 17:31] LABS: ABSOLUTE NEUTROPHILS 4.2 thou/uL (1.4-8.2); BASOPHILS 0.6 % (0.0-2.0); EOSINOPHILS 1.5 % (0.0-3.0); HEMATOCRIT 47.7 % (42.0-52.0); HEMOGLOBIN 16.5 gm/dL (14.0-18.0); MCH 31.7 pg (26.0-34.0); MCHC 34.6 g/dL (28.0-37.0); MCV 91.5 fL (80.0-100.0); MONOCYTES 4.8 % (1.0-8.0); PLATELET COUNT 244 thou/uL (150-400); POLYS 62.1 % (36.0-66.0); RBC 5.21 mil/uL (4.50-6.00); RDW 13.7 % (10.5-14.5); WBC 6.8 thou/uL (4.0-11.0)
[2018-10-30 17:37] LABS: CALCIUM 10.2 mg/dL (8.5-10.1); CREATININE 1.2 mg/dL (0.7-1.3); POTASSIUM 4.1 mmol/L (3.5-5.1)
[2018-10-30 17:43] LABS: INR 3.7; PROTIME 38.6 Seconds (9.3-11.4)
[2018-10-30 19:00] VITALS: BP 100/67
== END 2018-10-30 19:09 | disposition home or self-care (01) ==
LOC: ER 16:48
PROVIDERS: Emergency Medicine
DX: S09.90XA Unspecified injury of head, initial encounter (principal); G40.909 Epilepsy, unspecified, not intractable, without status epilepticus; F06.8 Other specified mental disorders due to known physiological condition; R79.1 Abnormal coagulation profile; G89.29 Other chronic pain; J45.909 Unspecified asthma, uncomplicated; E03.9 Hypothyroidism, unspecified; M19.90 Unspecified osteoarthritis, unspecified site; F17.210 Nicotine dependence, cigarettes, uncomplicated; Z88.1 Allergy status to other antibiotic agents; Z88.6 Allergy status to analgesic agent; Z88.8 Allergy status to other drugs, medicaments and biological substances; Z79.01 Long term (current) use of anticoagulants; Z79.899 Other long term (current) drug therapy; W18.09XA Striking against other object with subsequent fall, initial encounter; Y93.89 Activity, other specified; Y92.241 Library as the place of occurrence of the external cause; Y99.8 Other external cause status

== ENCOUNTER 2018-11-24 13:30 | Emergency (ER) | payer OTHER ==
[~2018-11-24] VITALS: Ht 203.2 cm; Wt 90.7 kg
[2018-11-24 17:21] VITALS: BP 114/75
== END 2018-11-24 16:50 | disposition home or self-care (01) ==
LOC: ER 13:30
DX: T16.2XXA Foreign body in left ear, initial encounter (principal); G89.29 Other chronic pain; J45.909 Unspecified asthma, uncomplicated; E03.9 Hypothyroidism, unspecified; M19.90 Unspecified osteoarthritis, unspecified site; G40.909 Epilepsy, unspecified, not intractable, without status epilepticus; Z86.14 Personal history of Methicillin resistant Staphylococcus aureus infection; F17.210 Nicotine dependence, cigarettes, uncomplicated; Z88.1 Allergy status to other antibiotic agents; Z88.6 Allergy status to analgesic agent; Z88.8 Allergy status to other drugs, medicaments and biological substances; Z79.899 Other long term (current) drug therapy; X58.XXXA Exposure to other specified factors, initial encounter; Y92.89 Other specified places as the place of occurrence of the external cause; Y93.89 Activity, other specified; Y99.8 Other external cause status

== ENCOUNTER 2019-04-03 14:48 | Emergency (ER) | payer OTHER ==
[~2019-04-03] VITALS: Ht 203.2 cm; Wt 90.7 kg
[2019-04-03 15:05] LABS: ABSOLUTE NEUTROPHILS 3.6 thou/uL (1.4-8.2); BASOPHILS 0.5 % (0.0-2.0); EOSINOPHILS 1.4 % (0.0-3.0); HEMATOCRIT 47.1 % (42.0-52.0); HEMOGLOBIN 16.1 gm/dL (14.0-18.0); LYMPHOCYTES 32.4 % (24.0-44.0); MCH 31.9 pg (26.0-34.0); MCHC 34.3 g/dL (28.0-37.0); MONOCYTES 5.8 % (1.0-8.0); PLATELET COUNT 214 thou/uL (150-400); POLYS 59.9 % (36.0-66.0); RBC 5.06 mil/uL (4.50-6.00); RDW 13.4 % (10.5-14.5)
[2019-04-03 15:13] LABS: CALCIUM 9.9 mg/dL (8.5-10.1); CREATININE 1.4 mg/dL (0.7-1.3); POTASSIUM 3.9 mmol/L (3.5-5.1)
[2019-04-03 15:19] LABS: APTT 32.9 Seconds (24.5-32.8); INR 2.1; PROTIME 22.1 Seconds (9.3-11.4)
[2019-04-03] MEDS ORDERED: TYLENOL EXTRA500 MG PO (15:50)
[2019-04-03] MEDS ORDERED: PROPRANOLOL 1010 MG PO (15:55)
[2019-04-03 16:30] VITALS: BP 95/59
[2019-04-03 17:00] VITALS: BP 95/53
[2019-04-03 17:07] LABS: AMP/METHAMP Negative (Negative); BARBITURATES Negative (Negative); BENZODIAZEPINES POSITIVE (Negative); COCAINE Negative (Negative); METHADONE Negative (Negative); OPIATES POSITIVE (Negative); PCP Negative (Negative)
[2019-04-03 17:08] LABS: URINE BILIRUBIN NEGATIVE (Negative); URINE BLOOD NEGATIVE (Negative); URINE CLARITY CLEAR; URINE COLOR YELLOW; URINE GLUCOSE-RANDOM* NEGATIVE (Negative); URINE KETONES TRACE (Negative); URINE LEUKOCYTES-REFLEX NEGATIVE (Negative); URINE NITRITE-REFLEX NEGATIVE (Negative); URINE PROTEIN (DIPSTICK) NEGATIVE (Negative); URINE UROBILINOGEN 0.2 E.U./dl (0.2-1.0)
[2019-04-03] MEDS ORDERED: LAMICTAL200 MG PO (17:35)
[2019-04-03 17:52] VITALS: BP 105/59
== END 2019-04-03 17:53 | disposition home or self-care (01) ==
LOC: ER 14:48
PROVIDERS: Emergency Medicine
DX: G40.89 Other seizures (principal); F31.9 Bipolar disorder, unspecified; J45.909 Unspecified asthma, uncomplicated; E03.9 Hypothyroidism, unspecified; E22.9 Hyperfunction of pituitary gland, unspecified; G89.29 Other chronic pain; M19.90 Unspecified osteoarthritis, unspecified site; M54.9 Dorsalgia, unspecified; F17.210 Nicotine dependence, cigarettes, uncomplicated; Z86.14 Personal history of Methicillin resistant Staphylococcus aureus infection; Z88.6 Allergy status to analgesic agent; Z88.1 Allergy status to other antibiotic agents; Z88.8 Allergy status to other drugs, medicaments and biological substances; Z91.048 Other nonmedicinal substance allergy status

== ENCOUNTER 2019-04-11 10:08 | Emergency (ER) | payer OTHER ==
[~2019-04-11] VITALS: Ht 188 cm; Wt 83.9 kg
[~2019-04-11 10:08] MED LIST changes: +LAMICTAL200 MG PO; +PROPRANOLOL 1010 MG PO; +TYLENOL EXTRA500 MG PO
[2019-04-11 11:02] LABS: INR 2.5; PROTIME 25.5 Seconds (9.3-11.4)
[2019-04-11 11:48] VITALS: BP 104/64
[2019-04-11] MEDS ORDERED: LAMICTAL200 MG PO (11:54)
--- NOTE | 2019-04-13 13:56 | EKG ---
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
== END 2019-04-11 11:48 | disposition home or self-care (01) ==
LOC: ER 10:08
PROVIDERS: Emergency Medicine
DX: G40.89 Other seizures (principal); G89.29 Other chronic pain; M54.5 Low back pain; F31.9 Bipolar disorder, unspecified; J45.909 Unspecified asthma, uncomplicated; E03.9 Hypothyroidism, unspecified; E22.9 Hyperfunction of pituitary gland, unspecified; M19.90 Unspecified osteoarthritis, unspecified site; F17.210 Nicotine dependence, cigarettes, uncomplicated; Z86.14 Personal history of Methicillin resistant Staphylococcus aureus infection; Z88.6 Allergy status to analgesic agent; Z88.1 Allergy status to other antibiotic agents; Z91.048 Other nonmedicinal substance allergy status; Z88.8 Allergy status to other drugs, medicaments and biological substances

== ENCOUNTER 2020-02-06 13:52 | Emergency (ER) | payer OTHER ==
[~2020-02-06] VITALS: Ht 203.2 cm; Wt 95.3 kg
[2020-02-06 14:23] LABS: ABSOLUTE NEUTROPHILS 6.6 thou/uL (1.4-8.2); BASOPHILS 0.4 % (0.0-2.0); EOSINOPHILS 0.1 % (0.0-3.0); HEMATOCRIT 46.5 % (42.0-52.0); HEMOGLOBIN 16.4 gm/dL (14.0-18.0); LYMPHOCYTES 9.9 % (24.0-44.0); MCH 32.6 pg (26.0-34.0); MCHC 35.3 g/dL (28.0-37.0); MCV 92.4 fL (80.0-100.0); MONOCYTES 6.8 % (1.0-8.0); PLATELET COUNT 194 thou/uL (150-400); POLYS 82.8 % (36.0-66.0); RBC 5.03 mil/uL (4.50-6.00); RDW 12.7 % (10.5-14.5); WBC 7.9 thou/uL (4.0-11.0)
[2020-02-06 14:31] LABS: CALCIUM 8.1 mg/dL (8.5-10.1); CREATININE 1.4 mg/dL (0.7-1.3); POTASSIUM 3.3 mmol/L (3.5-5.1)
[2020-02-06 14:38] LABS: ALBUMIN 3.4 g/dL (3.4-5.0); DIRECT BILIRUBIN 0.2 mg/dL (<0.1-0.2); TOTAL BILIRUBIN 0.7 mg/dL (0.2-1.0)
[2020-02-06] MEDS ORDERED: LAMICTAL200 MG PO (15:27)
[2020-02-06] MEDS ORDERED: LUVOX 50MG TABL50 M1 PO (15:29)
[2020-02-06] MEDS ORDERED: BACLOFEN 10MG T10 MG PO (15:29)
[2020-02-06] MEDS ORDERED: VITAMIN B-121000 MC2 PO (15:31)
[2020-02-06] MEDS ORDERED: MELATONIN5 MG SUBLING (15:44)
[2020-02-06] MEDS ORDERED: LEVOTHYROXINE50 MCG PO (15:46)
[2020-02-06] MEDS ORDERED: ROBAXIN 750 MG750 MG PO (15:48)
[2020-02-06 20:18] LABS: URINE BILIRUBIN NEGATIVE (Negative); URINE BLOOD NEGATIVE (Negative); URINE CLARITY CLEAR; URINE COLOR YELLOW; URINE GLUCOSE-RANDOM* NEGATIVE (Negative); URINE KETONES NEGATIVE (Negative); URINE LEUKOCYTES-REFLEX NEGATIVE (Negative); URINE NITRITE-REFLEX NEGATIVE (Negative); URINE PROTEIN (DIPSTICK) 1+ (Negative); URINE SPECIFIC GRAVITY 1.015 (1.005-1.035)
[2020-02-06 20:31] LABS: BACTERIA-REFLEX 1-9 Few /HPF (None Seen); CASTS None Seen /LPF (None Seen); CRYSTALS None Seen /LPF (None Seen); SQUAMOUS 0-3 Few /LPF (0-3); URINE RBC None Seen /HPF (0-2); URINE WBC-REFLEX 0-5 Rare /HPF (0-5)
[2020-02-06 21:19] VITALS: BP 130/78
--- NOTE | 2020-02-07 08:05 | EKG ---
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: [facility] : 1985 Requested By: Lauro Chatterjee Order Number: [id number] MD: Godfrey David Measurements Intervals [place] Rate: 83 P: 6 MD: 181 QRS: 19 QRSD: 107 T: 35 QT: 367 QTc: 432 Interpretive Statements Sinus rhythm RSR' in V1 or V2, probably normal variant Baseline wander in lead(s) V2 Compared to ECG 04/11/2019 10:08:21 No significant change was found Electronically Signed On 02-07-2020 8:04:55 CDT by Godfrey David [email or web address] <ELECTRONICALLY SIGNED> By: Godfrey David MD, [facility] 02/07/20 0804 1457 1457 Godfrey David MD, [facility] /EPI
== END 2020-02-06 21:30 | disposition home or self-care (01) ==
LOC: ER 13:52
PROVIDERS: Emergency Medicine
DX: U07.1 COVID-19 (principal); R30.0 Dysuria; R50.9 Fever, unspecified; J45.909 Unspecified asthma, uncomplicated; E03.9 Hypothyroidism, unspecified; G89.29 Other chronic pain; M54.9 Dorsalgia, unspecified; F17.210 Nicotine dependence, cigarettes, uncomplicated; Z79.01 Long term (current) use of anticoagulants; Z79.899 Other long term (current) drug therapy; Z88.1 Allergy status to other antibiotic agents; Z88.6 Allergy status to analgesic agent; Z88.8 Allergy status to other drugs, medicaments and biological substances; Z91.048 Other nonmedicinal substance allergy status

== ENCOUNTER 2020-02-08 10:32 | Emergency (ER) | payer OTHER ==
[~2020-02-08] VITALS: Ht 203.2 cm; Wt 95.3 kg
[~2020-02-08 10:32] MED LIST changes: +BACLOFEN 10MG T10 MG PO; +LEVOTHYROXINE50 MCG PO; +MELATONIN5 MG SUBLING; +ROBAXIN 750 MG750 MG PO; +VITAMIN B-121000 MC2 PO
[2020-02-08 11:58] LABS: ABSOLUTE NEUTROPHILS 13.5 thou/uL (1.4-8.2); BASOPHILS 0.3 % (0.0-2.0); EOSINOPHILS 0.1 % (0.0-3.0); HEMATOCRIT 45.2 % (42.0-52.0); HEMOGLOBIN 15.8 gm/dL (14.0-18.0); LYMPHOCYTES 2.2 % (24.0-44.0); MCH 32.3 pg (26.0-34.0); MCHC 34.9 g/dL (28.0-37.0); MCV 92.4 fL (80.0-100.0); MONOCYTES 3.7 % (1.0-8.0); PLATELET COUNT 244 thou/uL (150-400); POLYS 93.7 % (36.0-66.0); RBC 4.89 mil/uL (4.50-6.00); RDW 12.9 % (10.5-14.5); WBC 14.4 thou/uL (4.0-11.0)
[2020-02-08 12:02] LABS: CALCIUM 8.2 mg/dL (8.5-10.1); CREATININE 1.5 mg/dL (0.7-1.3); POTASSIUM 3.4 mmol/L (3.5-5.1)
[2020-02-08 12:08] LABS: ALBUMIN 3.4 g/dL (3.4-5.0); DIRECT BILIRUBIN 0.2 mg/dL (<0.1-0.2); TOTAL BILIRUBIN 0.9 mg/dL (0.2-1.0); TOTAL PROTEIN 7.1 g/dL (6.4-8.2)
[2020-02-08] MEDS ORDERED: ZOFRAN ODT4 MG PO (13:12)
[2020-02-08] MEDS ORDERED: GUAIFEN-CODEINE10 ML PO (13:12)
[2020-02-08] MEDS ORDERED: NICOTINE PATCH1 EAC2 TOP (13:17)
[2020-02-08] MEDS ORDERED: QUETIAPINE FUM400 MG PO (13:18)
[2020-02-08] MEDS ORDERED: CALCIUM ANTACI200 MG PO (13:20)
[2020-02-08 16:20] VITALS: BP 113/73
== END 2020-02-08 16:20 | disposition home or self-care (01) ==
LOC: ER 10:32
PROVIDERS: Emergency Medicine
DX: U07.1 COVID-19 (principal); R11.2 Nausea with vomiting, unspecified; J45.909 Unspecified asthma, uncomplicated; G89.29 Other chronic pain; M54.9 Dorsalgia, unspecified; E03.9 Hypothyroidism, unspecified; F17.210 Nicotine dependence, cigarettes, uncomplicated; Z79.899 Other long term (current) drug therapy; Z88.6 Allergy status to analgesic agent; Z88.1 Allergy status to other antibiotic agents; Z88.8 Allergy status to other drugs, medicaments and biological substances; Z91.048 Other nonmedicinal substance allergy status

== ENCOUNTER 2021-01-07 11:03 | Emergency (ER) | payer OTHER ==
[~2021-01-07] VITALS: Ht 203.2 cm; Wt 99.8 kg
[~2021-01-07 11:03] MED LIST changes: +CALCIUM ANTACI200 MG PO; +GUAIFEN-CODEINE10 ML PO; +NICOTINE PATCH1 EAC2 TOP; +ZOFRAN ODT4 MG PO
[2021-01-07 11:24] LABS: ABSOLUTE NEUTROPHILS 5.6 thou/uL (1.4-8.2); BASOPHILS 0.6 % (0.0-2.0); HEMATOCRIT 49.7 % (42.0-52.0); HEMOGLOBIN 16.8 gm/dL (14.0-18.0); LYMPHOCYTES 20.2 % (24.0-44.0); MCH 32.1 pg (26.0-34.0); MCHC 33.9 g/dL (28.0-37.0); MCV 94.7 fL (80.0-100.0); MONOCYTES 6.5 % (1.0-8.0); PLATELET COUNT 260 thou/uL (150-400); POLYS 70.7 % (36.0-66.0); RBC 5.24 mil/uL (4.50-6.00); RDW 13.4 % (10.5-14.5); WBC 7.9 thou/uL (4.0-11.0)
[2021-01-07 11:51] LABS: CALCIUM 8.5 mg/dL (8.5-10.1); CREATININE 1.3 mg/dL (0.7-1.3); POTASSIUM 5.2 mmol/L (3.5-5.1)
[2021-01-07 11:57] LABS: ALBUMIN 3.6 g/dL (3.4-5.0); TOTAL BILIRUBIN 0.7 mg/dL (0.2-1.0); TOTAL PROTEIN 6.6 g/dL (6.4-8.2)
[2021-01-07 16:18] VITALS: BP 108/68
--- NOTE | 2021-01-08 07:13 | EKG ---
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: : 1985 Requested By: Adam Lovelace Order Number: [id number] MD: Yovani Bundy Measurements Intervals [place] Rate: 88 P: 31 MD: 200 QRS: -30 QRSD: 106 T: 25 QT: 362 QTc: 438 Interpretive Statements Sinus rhythm Probable left atrial enlargement Left axis deviation RSR' in V1 or V2, probably normal variant Compared to ECG 02/06/2020 14:57:25 Left-axis deviation now present Electronically Signed On 01-08-2021 7:13:16 CDT by Yovani Bundy [email or web address] <ELECTRONICALLY SIGNED> By: Yovani Bundy MD, [facility] 01/08/21 0713 1105 1105 Yovani Bundy MD, [facility] /EPI
== END 2021-01-07 16:19 ==
LOC: ER 11:03
PROVIDERS: Emergency Medicine Emergency Medical Services
DX: R56.9 Unspecified convulsions (principal); M54.2 Cervicalgia; G89.29 Other chronic pain; J45.909 Unspecified asthma, uncomplicated; E03.9 Hypothyroidism, unspecified; M19.90 Unspecified osteoarthritis, unspecified site; F17.210 Nicotine dependence, cigarettes, uncomplicated; Z88.1 Allergy status to other antibiotic agents; Z88.6 Allergy status to analgesic agent; Z88.8 Allergy status to other drugs, medicaments and biological substances

== ENCOUNTER 2021-01-18 17:21 | Emergency (ER) | payer OTHER ==
[~2021-01-18] VITALS: Ht 185.4 cm; Wt 86.2 kg
--- NOTE | ~2021-01-18 | EMS ---
[address] [address] EMS Patient Care Report Name: VERONICA MARCOS Room #: DEP [facility]IE Mo#: [id number] Admission: 01/18/21 Attend Phys: Discharge: 01/18/21 Date of : [birth year] Report #: [id number] THIS REPORT FOR: //name// Report Transmitted: 01/23/2021 14:42 EMS Care Summary [place], [place]/[facility] Incident [id number] @ 01/18/2021 16:49 Incident Location [address] [place], [place] [id number] Patient VERONICA MARCOS Male, 36 Years 1985 Patient Address [address] [place] [address] Patient History Seizures, Chief Complaint seizure Disposition Transported No Lights/Drift Dispatch Reason Convulsions/Seizure Transported To [facility] Narrative pt found on floor in front of check out registers. pt reportedly fell to floor and started to have full body sz. on arrival pt opens eyes to verbal and appears confused. pt able to report he has a hx of sz. he is a resident of [facility]. he is to be eval at [facility]. pt lifted to cot, tx as listed in flow chart, transport w/o change, pt rests comfortably enroute. Initial Vitals @17:07P: 142,CO: 13,SpO2: 96, [address] [address] EMS Patient Care Report Name: VERONICA MARCOS Room #: DEP [facility].#: [id number] Admission: 01/18/21 Attend Phys: Discharge: 01/18/21 Date of : [birth year] Report #: [id number] @16:55P: 89,R: 18,BP: 110/77,Pain: 6/10,GCS: 13,Glucose: 96,SpO2: 97,Revised Trauma: 12,VT Suspected: false @17:01P: 83,R: 20,BP: 108/72,GCS: 14,CO: 13,SpO2: 98,Revised Trauma: 12, Assessments @16:53MENTAL:Confused,SKIN:No Abnormalities,HEENT:Head/Face: Other,LUNG SOUNDS:ABDOMEN:PELVIS//GI:EXTREMITIES:PULSE:Radial: 2+ Normal,NEURO:Seizures,Other, Impression Seizures Procedures @16:53ALS AssessmentResponse: Unchanged@16:54StretcherResponse: Unchanged@16:573-Lead ECGResponse: Unchanged@16:58Saline Lock 10cc (20 ga) Site: Forearm-LeftResponse: UnchangedSucceeded Timeline 16:47,Call Received 16:47,Dispatch Notified 16:49,Dispatched 16:49,En Route 16:51,On Scene 16:53,At Patient 16:53,ALS Assessment,Response: Unchanged 16:54,Stretcher,Response: Unchanged 16:55,BP: 110/77 M,PULSE: 89,RR: 18 R,SPO2: 97 Ox,ETCO2: ,B,PAIN: 6,GCS: 13, 16:57,3-Lead ECG,Response: Unchanged 16:58,Saline Lock 10cc 20 ga Site: Forearm-Left,Response: UnchangedSucceeded, 17:01,BP: 108/72 M,PULSE: 83,RR: 20 R,SPO2: 98 Ox,ETCO2: ,BG: ,PAIN: ,GCS: 14, 17:03,Depart Scene 17:07,BP: / M,PULSE: 142,RR: R,SPO2: 96 Ox,ETCO2: ,BG: ,PAIN: ,GCS: , 17:14,At Destination 17:29,Call Closed Disclaimer v1.1 Copyright 2020 [employer] This EMS Care Summary contains data elements from the applicable legal record (which may be displayed differently). It is designed to provide pertinent information for the following purposes: continuity of care, clinical quality, and state data reporting. The complete legal record is available to ED staff and administrators of the receiving hospital in [employer]'s Patient Tracker. All data is provided "as is."
[2021-01-18 17:42] LABS: ABSOLUTE NEUTROPHILS 9.2 thou/uL (1.4-8.2); BASOPHILS 0.2 % (0.0-2.0); EOSINOPHILS 1.1 % (0.0-3.0); HEMOGLOBIN 16.6 gm/dL (14.0-18.0); LYMPHOCYTES 15.8 % (24.0-44.0); MCH 32.1 pg (26.0-34.0); MCV 94.5 fL (80.0-100.0); MONOCYTES 5.7 % (1.0-8.0); PLATELET COUNT 257 thou/uL (150-400); POLYS 77.2 % (36.0-66.0); RBC 5.18 mil/uL (4.50-6.00); RDW 13.3 % (10.5-14.5); WBC 11.9 thou/uL (4.0-11.0)
[2021-01-18 17:45] LABS: ANION GAP 11 mmol/L (7-16); BUN 11 mg/dL (7-18); CALCIUM 9.3 mg/dL (8.5-10.1); CHLORIDE 103 mmol/L (98-107); CO2 26 mmol/L (21-32); CREATININE 1.4 mg/dL (0.7-1.3); GLUCOSE 113 mg/dL (74-106); POTASSIUM 4.3 mmol/L (3.5-5.1); SODIUM 140 mmol/L (136-145)
[2021-01-18 17:56] LABS: ALBUMIN 4.2 g/dL (3.4-5.0); DIRECT BILIRUBIN 0.1 mg/dL (<0.1-0.2); MAGNESIUM 1.9 mg/dL (1.8-2.4); SGOT 12 U/L (15-37); SGPT 16 U/L (16-63); TOTAL BILIRUBIN 0.6 mg/dL (0.2-1.0); TOTAL PROTEIN 7.2 g/dL (6.4-8.2); TROPONIN-I <0.06 ng/mL (<0.06)
[2021-01-18 17:57] LABS: APTT 38.8 Seconds (24.5-32.8); INR 1.3
[2021-01-18 19:30] VITALS: BP 166/80
--- NOTE | 2021-01-19 07:11 | EKG ---
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: SANJEEV : 1985 Requested By: Aneesh Naylor Order Number: [id number] MD: Yovani Bundy Measurements Intervals [place] Rate: 92 P: 15 OR: 203 QRS: 17 QRSD: 106 T: 9 QT: 369 QTc: 457 Interpretive Statements Sinus rhythm Borderline prolonged OR interval Probable left atrial enlargement RSR' in V1 or V2, right VCD or RVH Compared to ECG 01/07/2021 11:05:29 Right ventricular hypertrophy now present Left-axis deviation no longer present Electronically Signed On 01-19-2021 7:10:58 CDT by Yovani Bundy [email or web address] <ELECTRONICALLY SIGNED> By: Yovani Bundy MD, [facility] 01/19/21 0710 1732 173 Yovani Bundy MD, [facility] /EPI
--- NOTE | 2021-01-19 07:11 | EKG ---
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: [email or web address] : 1985 Requested By: Aneesh Naylor Order Number: [id number] MD: Yovani Bundy Measurements Intervals [place] Rate: 77 P: 16 SD: 180 QRS: 1 QRSD: 102 T: 27 QT: 378 QTc: 428 Interpretive Statements Sinus rhythm Probable left atrial enlargement RSR' in V1 or V2, right VCD or RVH Compared to ECG 01/18/2021 17:32:05 No significant changes Electronically Signed On 01-19-2021 7:11:00 CDT by Yovani Bundy [email or web address] <ELECTRONICALLY SIGNED> By: Yovani Bundy MD, [facility] 01/19/21710 11 11 Yovani Bundy MD, [facility] /EPI
== END 2021-01-18 19:40 | disposition home or self-care (01) ==
LOC: ER 17:21
PROVIDERS: Emergency Medicine
DX: S00.83XA Contusion of other part of head, initial encounter (principal); G40.909 Epilepsy, unspecified, not intractable, without status epilepticus; F31.9 Bipolar disorder, unspecified; J45.909 Unspecified asthma, uncomplicated; E03.9 Hypothyroidism, unspecified; M19.90 Unspecified osteoarthritis, unspecified site; F17.210 Nicotine dependence, cigarettes, uncomplicated; Z79.899 Other long term (current) drug therapy; Z79.01 Long term (current) use of anticoagulants; Z88.6 Allergy status to analgesic agent; Z88.1 Allergy status to other antibiotic agents; Z88.8 Allergy status to other drugs, medicaments and biological substances; Z91.048 Other nonmedicinal substance allergy status; W19.XXXA Unspecified fall, initial encounter; Y93.89 Activity, other specified; Y92.128 Other place in nursing home as the place of occurrence of the external cause; Y99.8 Other external cause status